=== PATIENT | female | born 1985 | race Caucasian/White ===

== ENCOUNTER 2016-08-12 00:08 | Emergency (ER) | payer MEDICAID ==
[~2016-08-12] VITALS: Ht 170.2 cm; Wt 91.0 kg
[~2016-08-12 00:08] MED LIST: ALPR2TAB PO; FLUO40CA9 PO; IBUP-1222 PO
[2016-08-12 00:15] VITALS: BP 131/90
[2016-08-12] MEDS ORDERED: KETOROLAC 30 MG/1 ML ONE (00:22)
[2016-08-12] MEDS ORDERED: CYCLOBENZAPRINE 10 MG TABLET ONE (00:23)
[2016-08-12] MEDS ORDERED: CYCLOBENZAPRINE 10 MG TABLET PO ONE (00:30)
[2016-08-12] MEDS ORDERED: KETOROLAC 30 MG/1 ML IM ONE (00:30)
== END 2016-08-12 01:58 | disposition home or self-care (01) ==
LOC: ED 00:49
DX: S16.1XXA Strain of muscle, fascia and tendon at neck level, initial encounter (principal); S46.912A Strain of unspecified muscle, fascia and tendon at shoulder and upper arm level, left arm, initial encounter; M62.838 Other muscle spasm; Z90.710 Acquired absence of both cervix and uterus; X58.XXXA Exposure to other specified factors, initial encounter; Y93.89 Activity, other specified; Y99.8 Other external cause status; Y92.009 Unspecified place in unspecified non-institutional (private) residence as the place of occurrence of the external cause
CPT/HCPCS: 72125; 73030; 96372; 99284; J1885

== ENCOUNTER 2016-10-05 12:52 | Emergency (ER) | payer MEDICAID ==
[~2016-10-05] VITALS: Ht 170.2 cm; Wt 98.7 kg
[2016-10-05 12:59] VITALS: BP 131/82
[2016-10-05] MEDS ORDERED: KETOROLAC 30 MG/1 ML ONE (13:53)
[2016-10-05] MEDS ORDERED: KETOROLAC 30 MG/1 ML IM ONE (14:00)
== END 2016-10-05 14:29 | disposition home or self-care (01) ==
LOC: ED 13:49
DX: M25.512 Pain in left shoulder (principal); G89.29 Other chronic pain; M54.9 Dorsalgia, unspecified; M54.2 Cervicalgia; F17.200 Nicotine dependence, unspecified, uncomplicated
CPT/HCPCS: 73030; 96372; 99284; J1885

== ENCOUNTER 2016-12-19 21:54 | Emergency (ER) | payer MEDICAID ==
[~2016-12-19] VITALS: Ht 170.2 cm; Wt 103.4 kg
[2016-12-19 21:58] VITALS: BP 126/78
[2016-12-19] MEDS ORDERED: KETOROLAC 30 MG/1 ML ONE (22:20)
[2016-12-19] MEDS ORDERED: KETOROLAC 30 MG/1 ML IM ONE (22:30)
[2016-12-19] MEDS ORDERED: ONDANSETRON ODT 4 MG PO ONE (23:30)
== END 2016-12-19 23:23 | disposition home or self-care (01) ==
LOC: ED 22:34
DX: S43.402A Unspecified sprain of left shoulder joint, initial encounter (principal); G89.29 Other chronic pain; Z90.710 Acquired absence of both cervix and uterus; X50.1XXA Overexertion from prolonged static or awkward postures, initial encounter; Y93.89 Activity, other specified; Y92.89 Other specified places as the place of occurrence of the external cause; Y99.8 Other external cause status
CPT/HCPCS: 29105; 73030; 96372; 99284; J1885

== ENCOUNTER 2016-12-23 17:11 | Emergency (ER) | payer MEDICAID ==
[~2016-12-23] VITALS: Ht 170.2 cm; Wt 102.5 kg
[2016-12-23 17:13] VITALS: BP 130/82
[2016-12-23] MEDS ORDERED: IBUPROFEN 200 MG TABLET ONE (19:34)
[2016-12-23] MEDS ORDERED: IBUPROFEN 200 MG TABLET PO ONE (20:00)
== END 2016-12-23 20:31 | disposition home or self-care (01) ==
LOC: ED 20:10
DX: S93.431A Sprain of tibiofibular ligament of right ankle, initial encounter (principal); S93.621A Sprain of tarsometatarsal ligament of right foot, initial encounter; G89.11 Acute pain due to trauma; G89.29 Other chronic pain; M54.2 Cervicalgia; F41.9 Anxiety disorder, unspecified; X50.1XXA Overexertion from prolonged static or awkward postures, initial encounter; Y93.01 Activity, walking, marching and hiking; Y92.488 Other paved roadways as the place of occurrence of the external cause; Y99.8 Other external cause status
CPT/HCPCS: 29515; 99284

== ENCOUNTER → 2017-02-14 | Outpatient (CLI) | payer MEDICAID | END | disposition home or self-care (01) | LOC: CFH 12:46 | PROVIDERS: ATTEND Physician Assistant | DX: M19.012 Primary osteoarthritis, left shoulder (principal); R60.0 Localized edema ==

== ENCOUNTER 2017-09-03 11:53 | Emergency (ER) | payer MEDICAID ==
[~2017-09-03] VITALS: Ht 175.3 cm; Wt 110.5 kg
[2017-09-03 12:31] LABS: BASOPHILS # (AUTO) 0.03 x10^3/uL (0-0.1); BASOPHILS % (AUTO) 0 % (0-1); EOSINOPHILS # (AUTO) 0.14 x10^3/uL (0-0.4); EOSINOPHILS % (AUTO) 2 % (1-7); LYMPHOCYTES # (AUTO) 1.54 x10^3/uL (1-3.4); LYMPHOCYTES % (AUTO) 22 % (22-44); MD NO; MEAN CORPUSCULAR HEMOGLOBIN 31.5 pg (27.0-34.8); MEAN CORPUSCULAR HGB CONC 33.5 g/dL (32.4-35.8); MEAN CORPUSCULAR VOLUME 94.1 fL (80-100); MEAN PLATELET VOLUME 7.9 fL (7.4-10.4); MONOCYTES # (AUTO) 0.37 x10^3/uL (0.2-0.8); MONOCYTES % (AUTO) 5 % (2-9); NEUTROPHILS % (AUTO) 71 % (42-75); PLATELET COUNT 233 x10^3/uL (130-400); RED BLOOD COUNT 4.33 x10^6/uL (3.82-5.3); RED CELL DISTRIBUTION WIDTH 13.9 % (9.6-15.2)
[2017-09-03 12:43] LABS: ALANINE AMINOTRANSFERASE 21 U/L (12-78); ALBUMIN 3.4 g/dL (3.4-5.0); ANION GAP 7 mmol/L (5-15); CALCIUM 8.4 mg/dL (8.5-10.1); CHLORIDE 110 mmol/L (98-107); CREATININE 0.79 mg/dL (0.55-1.02)
[2017-09-03 12:48] LABS: ALKALINE PHOSPHATASE 58 U/L (45-117); BILIRUBIN,TOTAL 0.4 mg/dL (0.2-1.0); TOTAL PROTEIN 6.3 g/dL (6.4-8.2)
[2017-09-03 13:01] VITALS: BP 113/53
[2017-09-03] MEDS ORDERED: IBUPROFEN 200 MG TABLET ONE (13:21)
[2017-09-03] MEDS ORDERED: ACETAMINOPHEN 500 MG TABLET ONE (13:21)
[2017-09-03] MEDS ORDERED: IBUPROFEN 200 MG TABLET PO ONE (13:30)
[2017-09-03] MEDS ORDERED: ACETAMINOPHEN 500 MG TABLET PO ONE (13:30)
== END 2017-09-03 15:55 | disposition home or self-care (01) ==
LOC: ED 15:00
DX: I87.2 Venous insufficiency (chronic) (peripheral) (principal); F41.1 Generalized anxiety disorder; F32.9 Major depressive disorder, single episode, unspecified; E66.9 Obesity, unspecified; M19.90 Unspecified osteoarthritis, unspecified site; Z90.710 Acquired absence of both cervix and uterus
CPT/HCPCS: 36415; 80053; 83880; 84703; 85025; 93970; 99285

== ENCOUNTER 2018-05-23 02:09 | Emergency (ER) | payer MEDICAID ==
[~2018-05-23] VITALS: Ht 170.2 cm; Wt 106.0 kg
[2018-05-23 02:12] VITALS: BP 128/83
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
[2018-05-23] MEDS ORDERED: FAMOTIDINE 20 MG TABLET PO ONE (03:30)
[2018-05-23] MEDS ORDERED: FAMOTIDINE 20 MG TABLET ONE (03:30)
== END 2018-05-23 03:47 | disposition home or self-care (01) ==
LOC: ED 03:15
DX: L23.89 Allergic contact dermatitis due to other agents (principal); L24.9 Irritant contact dermatitis, unspecified cause; F17.210 Nicotine dependence, cigarettes, uncomplicated
CPT/HCPCS: 99283; J7512